=== PATIENT | male | born 1955 | race African-American/Black ===

== ENCOUNTER 2020-03-09 04:25 | Emergency (ER) | payer MEDICAID, MEDICARE, OTHER ==
[~2020-03-09] VITALS: Ht 172.7 cm; Wt 73.0 kg
[~2020-03-09 04:25] MED LIST: HYDR25TA PO
[2020-03-09] MEDS ORDERED: LIDOCAINE HCL 1% 20ML VIAL (Pyxis) INJ INFIL ONE (08:00)
[2020-03-09 08:30] VITALS: BP 130/78
== END 2020-03-09 08:30 | disposition home or self-care (01) ==
LOC: ER 05:01
DX: T16.2XXA Foreign body in left ear, initial encounter (principal); I10 Essential (primary) hypertension; X58.XXXA Exposure to other specified factors, initial encounter; Y93.89 Activity, other specified; Y92.89 Other specified places as the place of occurrence of the external cause; Y99.8 Other external cause status
CPT/HCPCS: 69200; 99284; J3490